=== PATIENT | female | born 1965 | race Asian ===

== ENCOUNTER 2018-12-30 09:05 | Outpatient (CLI) | payer OTHER ==
[2018-12-30 09:43] LABS: #Basophils 0.1 thou/uL (0.0-0.2); #Eosinphils 0.1 thou/uL (0.0-0.7); #Lymphocytes 1.6 thou/uL (1.20-3.40); #Monocytes 0.4 thou/uL (0.11-0.59); #Neutrophils 3.1 thou/uL (1.40-6.50); %Basophils 1.2 % (0.0-1.0); %Eosinophils 1.1 % (0.0-10.0); %Lymphocytes 30.4 % (21.0-51.0); %Monocytes 6.9 % (0.0-10.0); %Neutrophils 60.3 % (42.0-75.0); Hemoglobin 13.4 g/dL (12.0-16.0); Mean Corpuscular HGB CONC 33.3 g/dL (32.0-36.0); Mean Corpuscular Hemoglobin 31.1 pg (27.0-31.0); Mean Corpuscular Volume 93.4 fL (78.0-98.0); Platelet Count 286 thou/uL (130-400); RBC Distribution Width 10.8 % (11.5-14.5); Red Blood Cell (RBC) Count 4.31 mill/uL (4.20-5.40); White Blood Cell (WBC) Count 5.2 thou/uL (4.8-10.8)
[2018-12-30 09:57] LABS: Albumin 4.6 g/dL (3.5-5.0); Bilirubin, Total 0.6 mg/dL (0.2-1.2); Calcium 9.8 mg/dL (7.8-10.44); Cardiac Risk 3.9 (Less than 4.5); Potassium 4.1 mmol/L (3.5-5.1); Protein, Total 7.6 g/dL (6.0-8.3)
[2018-12-30 17:58] LABS: Hemoglobin A1c 5.4 % (4.0-6.0)
== END 2018-12-30 09:06 | disposition home or self-care (01) ==
LOC: MADLABBHPM 09:05
DX: Z00.00 Encounter for general adult medical examination without abnormal findings (principal)
CPT/HCPCS: 36415; 80053; 80061; 83036; 84443; 85025